=== PATIENT | male | born 1945 | race Caucasian/White ===

== ENCOUNTER 2019-12-10 19:04 | Inpatient (IN) | payer MEDICARE, MEDICAID ==
[2019-12-11 07:44] VITALS: BP 103/62
[2019-12-11] MEDS ORDERED: Magnesium Hydroxide (MOM) 30 mL UDC PO PRN (07:45)
[2019-12-11] MEDS ORDERED: Maalox 30 mL Cup PO PRN (07:45)
[2019-12-11] MEDS ORDERED: Multivitamin Tab PO SCH (09:00)
--- NOTE | 2019-12-11 19:12 | History & Physical ---
ADMIT DATE: 12/11/2019 HISTORY OF PRESENT ILLNESS: The patient is a 74-year-old male with long history of hypertension, mild dementia, constipation, degenerative joint disease, admitted to [facility] for evaluation and treatment. The patient denies chest pain, shortness of breath, nausea, vomiting, fever or chills. PAST MEDICAL HISTORY: Significant for hypertension, degenerative joint disease, constipation and dementia. PAST SURGICAL HISTORY: No recent surgery. ALLERGIES: None. MEDICATIONS: Follow admission reconciliation. SOCIAL HISTORY: Chronic smoker. No alcohol or drug. FAMILY HISTORY: Noncontributory. REVIEW OF SYSTEMS: RENAL SYSTEM: No history of chronic renal disorder. CARDIOVASCULAR SYSTEM: He has history of hypertension. ENDOCRINE SYSTEM: No diabetes or thyroid problem. GASTROINTESTINAL SYSTEM: No upper or lower gastrointestinal bleed. NEUROLOGICAL SYSTEM: Seizure disorder. SKELETOMUSCULAR SYSTEM: No muscular dystrophy. HEMATOLOGICAL SYSTEM: No bleeding tendencies. RESPIRATORY SYSTEM: No asthma. GENITOURINARY: No dysuria or hematuria. PHYSICAL EXAMINATION: GENERAL: He is awake, alert, mildly confused. VITAL SIGNS: Temperature 97.1, heart rate 72, blood pressure 100/59. HEENT: Normocephalic. Pupils are equal to light and accommodation. Sclerae clear. NECK: Supple. Negative for lymphadenopathy, JVD or bruit. CHEST: Entry of air bilaterally normal. No rhonchi or wheezing. HEART: S1, S2 normal. No gallop rhythm. ABDOMEN: Soft, bowel sounds positive. EXTREMITIES: No edema. SKIN: Intact. NEUROLOGIC: He is awake, alert, mildly confused. No focal motor or sensory deficit. Cranial neve #1: The patient is able to smell different odor. Cranial #2: The patient is able to read printed page. Cranial nerve #3: The patient is able to move eyeball upward and outward. Cranial nerve #4: The patient is able to move eyeball inward and downward. Cranial nerve #5: The patient able to clench teeth, has normal sensation to forehead. Cranial nerve #6: The patient is able to move eyeball lateral on both sides. Cranial nerve #7: The patient is able to move eyebrow upwards on both sides. Cranial nerve #8: The patient is able to hear finger rubs on both sides. Cranial nerve #9: The patient has a normal gag reflex. Cranial nerve #10: The patient is able to move soft palate upward on each side. Cranial nerve #11: The patient able to shrink shoulder on both sides. Cranial nerve #12: The patient able to stick tongue straight. Motor and sensory system: His gait is normal. Romberg reflex is normal. Muscle tone is normal. Deep tendon reflex is normal. Plantar reflex is normal. [id number] is normal. Dqpz-yn-[id number] is normal. Sensory is normal. ASSESSMENT: 1. Hypertension. 2. Chronic obstructive pulmonary disease. 3. Degenerative joint disease. 4. Psychosis. PLAN: The patient in the hospital under Dr. Cooper's service. Medical problem during hospitalization is psychosis. Medical problems addressed at discharge for patient's cessation of smoking. The patient is medically stable for activity. Thank you, Dr. Cooper, for asking me to see your patient. The patient will follow up with primary care physician upon discharge. The patient is a full code. JOB# [id number]
--- NOTE | 2019-12-12 00:26 | Psychiatric Evaluation ---
DATE OF SERVICE: 12/11/2019 PSYCHIATRIC INITIAL EVALUATION MENTAL STATUS EXAM AGE: 74. SEX: Male. PHYSICIAN: Dr. Cooper. CHIEF COMPLAINT: Agitation and paranoia. HISTORY OF PRESENT ILLNESS: The patient is a 74-year-old male with long history of schizophrenia. The patient has been increasingly paranoid and has been also actively responding to stimuli. He has been talking to himself. He also needed lots of redirections and staff has not been able to do so and because of their inability to handle patient's condition, patient was transferred to [facility]. ____ [facility] [place]. He still has episodes of irritability and anger. The patient also has been suspicious and paranoid and at times actively talking to himself and actively hallucinating. The patient also needed lots of redirections. PAST PSYCHIATRIC HISTORY: The patient has history of schizophrenia and he has been monitored in [facility] closely for his paranoia. PAST MEDICAL HISTORY: The patient has hypertension and type 2 diabetes mellitus as well as chronic obstructive pulmonary disease. The patient also has anemia that is unspecified and also history of heart failure as well as polyarthritis and Parkinson's disease. SOCIAL HISTORY: The patient lives in [facility]. No known alcohol or drug abuse. ALLERGIES: No known allergies. MENTAL STATUS EXAMINATION: The patient appears his stated age. Unkempt. Anxious. Thought processes are circumstantial with flight of ideas. The patient is actively hallucinating and talking to himself and not able to answer questions coherently and gets agitated with my questions. The patient denies auditory or visual hallucinations, but actively responding. The patient denies suicide or homicide. The patient is alert and oriented to time, place, person, and situation. I am unable to assess his memory at this time because of his agitation. Poor insight and poor judgment. ASSESSMENT: PRIMARY DIAGNOSIS: Schizophrenic disorder, unspecified. MEDICAL DIAGNOSES: 1. Anemia. 2. Kidney disease, unspecified. 3. Type 2 diabetes mellitus. 4. Umbilical hernia. TREATMENT PLAN: We will monitor behavior and condition closely. Also, we will start individual as well as milieu psychotherapy. Also, we will monitor his behavior and work on behavioral modification. ESTIMATED LENGTH OF STAY: 5-7 days. PATIENT'S STRENGTHS AND WEAKNESSES: The patient's strength is not clear at this time. WEAKNESSES: Psychosis. AFTER DISCHARGE PLAN: The patient will return to [facility] with plans to continue to follow him up there. JOB# [id number]
[2019-12-12] MEDS: Multivitamin w/ Minerals Tab PO SCH (08:57)
[2019-12-12] MEDS: Lactulose 10 Gm/15 mL 30mL UDC PO SCH ×2 (08:59→17:15)
[2019-12-12] MEDS ORDERED: Non-Formulary Item 1 EA (Valbenazine Tosylate [Ingrezza] 40 MG) PO SCH (09:00)
--- NOTE | 2019-12-12 12:08 | Progress Notes ---
DATE: 12/12/2019 SUBJECTIVE: Chart was reviewed and the patient interviewed. Also discussed the patient's condition with the staff and reviewed records and labs. The patient is still anxious and is still having episodes of irritability and agitation. The patient also still has mood swings and still seems to be adjusting. Otherwise, the patient is compliant with taking his medications and no side effects of Risperdal The patient's gait is steady. Vital signs are stable. New labs are available for review. TREATMENT PLAN: Continue Risperdal on a dose 1.5 mg every day and continue adjusting the dose. Also continue to work on behavioral modification and followup. ESTIMATED LENGTH OF STAY: 3-5 days. REASON FOR CONTINUED HOSPITAL STAY: The patient is still agitated and needs close monitoring and work on adjusting medications and behavioral modification. JOB# [id number]
--- NOTE | 2019-12-12 15:07 | Internal Medicine Prog Note ---
Internal Medicine Subjective - Subjective Service Date: 12/12/19 Patient seen and examined:: with staff (HE FEELS WELL) Patient is:: awake, verbal, ambulating, talking, confused Per staff patient has:: no adverse event, eating well, confused Internal Medicine Objective - Physical Exam Vitals and I&O: Vital Signs Temp 97.5 F 12/12/19 14:00 Pulse 110 12/12/19 14:00 Resp 18 12/12/19 14:00 BP 106/76 12/12/19 14:00 Pulse Ox 98 12/12/19 14:00 Intake & Output 12/11/19 12/12/19 12/12/19 18:59 06:59 18:59 Intake Total 240 Balance 240 Weight (lbs) 81.647 kg Intake: Oral 240 Other: # Voids 2 # Bowel Movements 0 Stool Characteristics Soft Soft Soft Brown Brown Brown Weight Source Patient stated Active Medications: Current Medications Acetaminophen (Tylenol) 650 mg PO Q4H PRN PRN Reason: Pain (Mild 1-3) Stop: 02/09/20 07:44 Al Hydrox/Mg Hydrox/Simethicone (Maalox) 30 ml PO Q4HR PRN PRN Reason: GI DISTRESS Stop: 02/09/20 07:44 Carvedilol (Coreg) 3.125 mg PO BID [facility] Stop: 02/10/20 08:59 Last Admin: 12/12/19 08:57 Dose: 3.125 mg Docusate Sodium (Colace) 250 mg PO BID [facility] Stop: 02/10/20 08:59 Last Admin: 12/12/19 08:57 Dose: 250 mg Lactulose (Cephulac) 30 gm PO BID [facility] Stop: 02/10/20 08:59 Last Admin: 12/12/19 08:59 Dose: 30 gm Lorazepam (Ativan) 0.5 mg PO Q4HR PRN; Protocol PRN Reason: Anxiety Stop: 01/10/20 07:44 Losartan Potassium (Cozaar) 25 mg PO DAILY [facility] Stop: 02/10/20 08:59 Last Admin: 12/12/19 08:58 Dose: 25 mg Magnesium Hydroxide (Milk Of Magnesia) 30 ml PO HS PRN PRN Reason: Constipation Miscellaneous (Valbenazine Tosylate [Ingrezza]) 40 mg PO DAILY [facility] Stop: 02/10/20 08:59 Risperidone (Risperdal) 1.5 mg PO HS PERLA; Protocol Stop: 02/09/20 20:59 Trazodone HCl (Desyrel) 25 mg PO HS PERLA; Protocol Stop: 02/09/20 20:59 Zolpidem Tartrate (Ambien) 5 mg PO HS PRN PRN Reason: Insomnia Stop: 02/09/20 07:44 General: demented HEENT: NC/AT, PERRLA, EOMI, anicteric sclerae, throat clear Neck: Supple, No JVD, No thyromegaly, +2 carotid pulse wo bruit, No LAD Lungs: CTAB Cardiovascular: RRR, Normal S1, Normal S2, without murmur Abdomen: soft, non-tender, non-distended Extremities: clear Neurological: no change, gait stable Internal Medicine Assmt/Plan - Assessment Assessment: 1.HTN. 2.COPD. 3,DJD. 4.PSYCHOSIS - Plan Plan: CONTIINUE ON CURRENT MEDICATION AND DIET
--- NOTE | 2019-12-13 07:12 | Progress Notes ---
DATE: 12/13/2019 SUBJECTIVE: A 74-year-old male with history of schizophrenia, paranoid. Does not know why he is here, just stating, "the ambulance brought me", but apparently he was paranoid, angry, and irritable. The patient mostly withdrawn, keeps to self, seems to be somewhat paranoid of those around him. Time was spent speaking with the patient, review of the medical records. Vitals were reviewed and recent labs were reviewed. Medications were reviewed. Ongoing symptoms, psychotic symptoms. I will continue to monitor closely. The patient remains unstable, ongoing paranoia. JOB# [id number]
[2019-12-13] MEDS: Lactulose 10 Gm/15 mL 30mL UDC PO SCH ×2 (08:27→16:28)
[2019-12-13] MEDS: Multivitamin w/ Minerals Tab PO SCH (08:30)
--- NOTE | 2019-12-13 20:17 | General Progress Note ---
Subjective - Review of Systems Service Date: 12/13/19 Subjective: resting comfortably no distress Objective - Results Recent Labs: Laboratory Last Values POC Glucose 115 MG/DL (70 - 105) H 12/12/19 15:56 - Physical Exam Vitals and I&O: Vital Signs Temp 97.4 F 12/13/19 20:10 Pulse 83 12/13/19 20:10 Resp 18 12/13/19 20:10 BP 131/71 12/13/19 20:10 Pulse Ox 96 12/13/19 20:10 Intake & Output 12/13/19 12/13/19 12/14/19 06:59 18:59 06:59 Intake Total 400 1200 120 Balance 400 1200 120 Intake: Oral 400 1200 120 Other: # Voids 2 2 # Bowel Movements 0 1 0 Stool Characteristics Soft Brown Active Medications: Current Medications Acetaminophen (Tylenol) 650 mg PO Q4H PRN PRN Reason: Pain (Mild 1-3) Stop: 02/09/20 07:44 Last Admin: 12/12/19 23:41 Dose: 650 mg Al Hydrox/Mg Hydrox/Simethicone (Maalox) 30 ml PO Q4HR PRN PRN Reason: GI DISTRESS Stop: 02/09/20 07:44 Carvedilol (Coreg) 3.125 mg PO BID [facility] Stop: 02/10/20 08:59 Last Admin: 12/13/19 16:27 Dose: Not Given Docusate Sodium (Colace) 250 mg PO BID [facility] Stop: 02/10/20 08:59 Last Admin: 12/13/19 16:29 Dose: 250 mg Lactulose (Cephulac) 30 gm PO BID [facility] Stop: 02/10/20 08:59 Last Admin: 12/13/19 16:28 Dose: Not Given Lorazepam (Ativan) 0.5 mg PO Q4HR PRN; Protocol PRN Reason: Anxiety Stop: 01/10/20 07:44 Losartan Potassium (Cozaar) 25 mg PO DAILY [facility] Stop: 02/10/20 08:59 Last Admin: 12/13/19 08:31 Dose: Not Given Magnesium Hydroxide (Milk Of Magnesia) 30 ml PO HS PRN PRN Reason: Constipation Miscellaneous (Valbenazine Tosylate [Ingrezza]) 40 mg PO DAILY [facility] Stop: 02/10/20 08:59 Risperidone (Risperdal) 1.5 mg PO HS PERLA; Protocol Stop: 02/09/20 20:59 Last Admin: 12/12/19 21:16 Dose: 1.5 mg Trazodone HCl (Desyrel) 25 mg PO HS PERLA; Protocol Stop: 02/09/20 20:59 Last Admin: 12/12/19 21:10 Dose: 25 mg Zolpidem Tartrate (Ambien) 5 mg PO HS PRN PRN Reason: Insomnia Stop: 02/09/20 07:44 Last Admin: 12/12/19 23:41 Dose: 5 mg General: No acute distress HEENT: Atraumatic, PERRLA Neck: Supple, JVD, Thyromegaly Cardiovascular: Regular rate, Normal S1, Normal S2 Lungs: Clear to auscultation Abdomen: Bowel sounds, Soft Assessment/Plan - Assessment Assessment: 1.HTN. 2.COPD. 3,DJD. 4.PSYCHOSIS - Plan Plan: continue current treatment Nutritional Asmnt/Malnutr-PDOC - Dietary Evaluation Malnutrition Findings (Please click <Entered> for more info): Nutritional Asmnt/Malnutrition Start: 12/13/19 10: 32 Text: Status: Complete Freq: Protocol: Document 12/13/19 10:32 ZOEY (Rec: 12/13/19 10:41 [facility]- [email or web address]) Nutritional Asmnt/Malnutrition Patient General Information Nutritional Screening Moderate Risk Diagnosis Psychosis Pertinent Medical Hx/Surgical Hx Hypertension, degenerative joint disease, constipation, dementia Subjective Information Patient was admitted from [facility]. Per nursing notes, patient with poor dentition and no dentures brought in. He is tolerating current diet with adequate intake. Current Diet Order/ Nutrition Support Pureed, Cardiac, 60gm CCHO, NCS Patient / S.O Not Indicated Pertinent Medications maalox, colace, lactulose, cozaar, MOM Pertinent Labs Glucose 115 Nutritional Hx/Data Height 1.83 m Height (Calculated Centimeters) 182.9 Current Weight (lbs) 81.647 kg Weight (Calculated Kilograms) 81.6 Weight (Calculated Grams) 79722.6 [place] Body Weight 178 % [place] Body Weight 101 Body Mass Index (BMI) 24.4 Recent Weight Change No Weight Status Approriate GI Symptoms GI Symptoms None Last BM 12/11 x 1 Difficult in: None Food Allergies No Cultural/Ethnic/Baptist Belief none indicated Usual diet at home unknown Skin Integrity/Comment: Matthew 18, Intact Current %PO Good (75-100%) Estimated Nutritional Goals BEE in Kcals: Using Current wt Calories/Kcals/Kg 81.8kg 25-30 kcal/kg Kcals Calculated ~5477-9988 kcal/day Protein: Using Current wt Protein g/k.8-1gm/kg Protein Calculated ~65-80 gm/day Fluid: ml ~8769-1869 ml/day (1 ml/kcal) Nutritional Problem No current Nutrition Prob Problem No nutrition diagnosis at this time Intervention/Recommendation Comments 1. Continue pureed, Cardiac, 60gm CCHO diet as tolerated by patient. Expected Outcomes/Goals Expected Outcomes/Goals Adequate nutrition to meet >75 % estimated needs, improved labs, improved GI function, TF tolerance, advancement to oral diet, skin remains intact , weight maintenance or trend toward ideal body weight. F/U LR 12/19-
[2019-12-14] MEDS: Lactulose 10 Gm/15 mL 30mL UDC PO SCH ×2 (08:29→17:59)
[2019-12-14] MEDS: Multivitamin w/ Minerals Tab PO SCH (08:32)
--- NOTE | 2019-12-14 14:51 | General Progress Note ---
Subjective - Review of Systems Service Date: 12/14/19 Subjective: resting comfortably no distress Objective - Results Recent Labs: Laboratory Last Values POC Glucose 115 MG/DL (70 - 105) H 12/12/19 15:56 - Physical Exam Vitals and I&O: Vital Signs Temp 98.8 F 12/14/19 06:08 Pulse 71 12/14/19 08:30 Resp 19 12/14/19 07:43 BP 106/53 12/14/19 08:30 Pulse Ox 93 12/14/19 06:08 Intake & Output 12/13/19 12/14/19 12/14/19 18:59 06:59 18:59 Intake Total 1200 240 Balance 1200 240 Intake: Oral 1200 240 Other: # Voids 1 # Bowel Movements 1 0 Stool Characteristics Soft Brown Active Medications: Current Medications Acetaminophen (Tylenol) 650 mg PO Q4H PRN PRN Reason: Pain (Mild 1-3) Stop: 02/09/20 07:44 Last Admin: 12/12/19 23:41 Dose: 650 mg Al Hydrox/Mg Hydrox/Simethicone (Maalox) 30 ml PO Q4HR PRN PRN Reason: GI DISTRESS Stop: 02/09/20 07:44 Carvedilol (Coreg) 3.125 mg PO BID [facility] Stop: 02/10/20 08:59 Last Admin: 12/14/19 08:29 Dose: Not Given Docusate Sodium (Colace) 250 mg PO BID [facility] Stop: 02/10/20 08:59 Last Admin: 12/14/19 08:32 Dose: 250 mg Lactulose (Cephulac) 30 gm PO BID [facility] Stop: 02/10/20 08:59 Last Admin: 12/14/19 08:29 Dose: Not Given Lorazepam (Ativan) 0.5 mg PO Q4HR PRN; Protocol PRN Reason: Anxiety Stop: 01/10/20 07:44 Losartan Potassium (Cozaar) 25 mg PO DAILY [facility] Stop: 02/10/20 08:59 Last Admin: 12/14/19 08:30 Dose: Not Given Magnesium Hydroxide (Milk Of Magnesia) 30 ml PO HS PRN PRN Reason: Constipation Miscellaneous (Valbenazine Tosylate [Ingrezza]) 40 mg PO DAILY [facility] Stop: 02/10/20 08:59 Risperidone (Risperdal) 1.5 mg PO HS PERLA; Protocol Stop: 02/09/20 20:59 Last Admin: 12/13/19 21:26 Dose: 1.5 mg Trazodone HCl (Desyrel) 25 mg PO HS PERLA; Protocol Stop: 02/09/20 20:59 Last Admin: 12/13/19 21:25 Dose: 25 mg Zolpidem Tartrate (Ambien) 5 mg PO HS PRN PRN Reason: Insomnia Stop: 02/09/20 07:44 Last Admin: 12/13/19 21:26 Dose: 5 mg General: No acute distress HEENT: Atraumatic, PERRLA Neck: Supple, JVD, Thyromegaly Cardiovascular: Regular rate, Normal S1, Normal S2 Lungs: Clear to auscultation Abdomen: Bowel sounds, Soft Assessment/Plan - Assessment Assessment: 1.HTN. 2.COPD. 3,DJD. 4.PSYCHOSIS - Plan Plan: continue current treatment Nutritional Asmnt/Malnutr-PDOC - Dietary Evaluation Malnutrition Findings (Please click <Entered> for more info): Nutritional Asmnt/Malnutrition Start: 12/13/19 10: 32 Text: Status: Complete Freq: Protocol: Document 12/13/19 10:32 ZOEY (Rec: 12/13/19 10:41 [facility]- [email or web address]) Nutritional Asmnt/Malnutrition Patient General Information Nutritional Screening Moderate Risk Diagnosis Psychosis Pertinent Medical Hx/Surgical Hx Hypertension, degenerative joint disease, constipation, dementia Subjective Information Patient was admitted from [facility]. Per nursing notes, patient with poor dentition and no dentures brought in. He is tolerating current diet with adequate intake. Current Diet Order/ Nutrition Support Pureed, Cardiac, 60gm CCHO, NCS Patient / S.O Not Indicated Pertinent Medications maalox, colace, lactulose, cozaar, MOM Pertinent Labs Glucose 115 Nutritional Hx/Data Height 1.83 m Height (Calculated Centimeters) 182.9 Current Weight (lbs) 81.647 kg Weight (Calculated Kilograms) 81.6 Weight (Calculated Grams) 49887.6 [place] Body Weight 178 % [place] Body Weight 101 Body Mass Index (BMI) 24.4 Recent Weight Change No Weight Status Approriate GI Symptoms GI Symptoms None Last BM 12/11 x 1 Difficult in: None Food Allergies No Cultural/Ethnic/Jainism Belief none indicated Usual diet at home unknown Skin Integrity/Comment: Matthew 18, Intact Current %PO Good (75-100%) Estimated Nutritional Goals BEE in Kcals: Using Current wt Calories/Kcals/Kg 81.8kg 25-30 kcal/kg Kcals Calculated ~9518-1246 kcal/day Protein: Using Current wt Protein g/k.8-1gm/kg Protein Calculated ~65-80 gm/day Fluid: ml ~8613-7477 ml/day (1 ml/kcal) Nutritional Problem No current Nutrition Prob Problem No nutrition diagnosis at this time Intervention/Recommendation Comments 1. Continue pureed, Cardiac, 60gm CCHO diet as tolerated by patient. Expected Outcomes/Goals Expected Outcomes/Goals Adequate nutrition to meet >75 % estimated needs, improved labs, improved GI function, TF tolerance, advancement to oral diet, skin remains intact , weight maintenance or trend toward ideal body weight. F/U LR 12/19-
--- NOTE | 2019-12-14 22:54 | Progress Notes ---
DATE: 12/14/2019 PHYSICIAN: Ponce Trinh DO COVERING FOR: Dr. Monica Cooper SUBJECTIVE: The patient was interviewed. Case was discussed with staff. Chart and records were reviewed. Per the staff, the patient has been isolated, withdrawn, depressed. The patient was interviewed this morning at bedside. The patient reports "they just brought me here." The patient appears withdrawn and isolating himself to his room. He appears to be paranoid of his environment. He has poor insight into his condition. He reports no side effects to his medication. He otherwise is poorly cooperative with the interview. MENTAL STATUS EXAMINATION: The patient is an elderly male lying in his hospital bed. He is calm, but guarded. Speech is soft. Mood and affect appear to be irritable and constricted. Thought process appears to be somewhat concrete and loose at times and unable to assess for suicidal or homicidal thoughts, but the patient does appear to be somewhat internally preoccupied and paranoid of his environment. He is alert and oriented to person. His insight, judgment and impulse control appear to be poor at this time. ASSESSMENT AND PLAN: We will continue the patient's acute hospitalization. We will continue medications as prescribed. We will encourage the patient to verbalize his needs and participate in group and milieu therapy. [facility]# [id number]
--- NOTE | 2019-12-15 07:39 | Progress Notes ---
DATE: 12/15/2019 SUBJECTIVE: Chart was reviewed and the patient interviewed. Also discussed the patient's condition with the staff and reviewed records and labs. The patient is still in irritable mood and still having severe mood swings. The patient also is still easily agitated. The patient also still needs lots of redirections because of his irritability and anger. The patient also gets angry quickly. Otherwise, the patient is compliant with taking medications with no side effects of medications. MENTAL STATUS EXAM: Unkempt. Angry. Irritable mood. Thought process is circumstantial, but no flight of ideas. ASSESSMENT: The patient is still agitated and still needs close monitoring. TREATMENT PLAN: We will continue monitoring his behavior and condition closely. Also, we will increase Risperdal to 1 mg in the morning and 1.5 mg at bedtime and continue to work on behavioral modification. JOB# [id number]
[2019-12-15] MEDS: Multivitamin w/ Minerals Tab PO SCH (08:26)
[2019-12-15] MEDS: Lactulose 10 Gm/15 mL 30mL UDC PO SCH ×2 (08:27→16:08)
[2019-12-15] MEDS: risperiDONE 1 mg/mL 30 mL Bottle PO SCH (13:24)
--- NOTE | 2019-12-15 16:54 | Internal Medicine Prog Note ---
Internal Medicine Subjective - Subjective Service Date: 12/15/19 Patient seen and examined:: without staff (HE FEELS BETTER) Patient is:: awake, verbal, ambulating, talking, confused Per staff patient has:: no adverse event, eating well, confused Internal Medicine Objective - Results Recent Labs: Laboratory Last Values POC Glucose 115 MG/DL (70 - 105) H 12/12/19 15:56 - Physical Exam Vitals and I&O: Vital Signs Temp 96.9 F 12/15/19 15:02 Pulse 86 12/15/19 16:08 Resp 20 12/15/19 15:02 BP 130/76 12/15/19 16:08 Pulse Ox 94 12/15/19 15:02 Intake & Output 12/14/19 12/15/19 12/15/19 18:59 06:59 18:59 Intake Total 500 360 Balance 500 360 Intake: Oral 500 360 Other: # Voids 1 # Bowel Movements 1 0 Active Medications: Current Medications Acetaminophen (Tylenol) 650 mg PO Q4H PRN PRN Reason: Pain (Mild 1-3) Stop: 02/09/20 07:44 Last Admin: 12/12/19 23:41 Dose: 650 mg Al Hydrox/Mg Hydrox/Simethicone (Maalox) 30 ml PO Q4HR PRN PRN Reason: GI DISTRESS Stop: 02/09/20 07:44 Carvedilol (Coreg) 3.125 mg PO BID [facility] Stop: 02/10/20 08:59 Last Admin: 12/15/19 16:08 Dose: 3.125 mg Docusate Sodium (Colace) 250 mg PO BID [facility] Stop: 02/10/20 08:59 Last Admin: 12/15/19 16:08 Dose: 250 mg Lactulose (Cephulac) 30 gm PO BID [facility] Stop: 02/10/20 08:59 Last Admin: 12/15/19 16:08 Dose: Not Given Lorazepam (Ativan) 0.5 mg PO Q4HR PRN; Protocol PRN Reason: Anxiety Stop: 01/10/20 07:44 Losartan Potassium (Cozaar) 25 mg PO DAILY [facility] Stop: 02/10/20 08:59 Last Admin: 12/15/19 08:27 Dose: Not Given Magnesium Hydroxide (Milk Of Magnesia) 30 ml PO HS PRN PRN Reason: Constipation Miscellaneous (Valbenazine Tosylate [Ingrezza]) 40 mg PO DAILY [facility] Stop: 02/10/20 08:59 Risperidone (Risperdal) 1.5 mg PO HS [facility]; Protocol Stop: 02/09/20 20:59 Last Admin: 12/14/19 21:44 Dose: 1.5 mg Risperidone (Risperdal) 1 mg PO DAILY [facility]; Protocol Stop: 02/13/20 08:59 Last Admin: 12/15/19 13:24 Dose: Not Given Trazodone HCl (Desyrel) 25 mg PO HS [facility]; Protocol Stop: 02/09/20 20:59 Last Admin: 12/14/19 21:44 Dose: 25 mg Zolpidem Tartrate (Ambien) 5 mg PO HS PRN PRN Reason: Insomnia Stop: 02/09/20 07:44 Last Admin: 12/13/19 21:26 Dose: 5 mg General: demented HEENT: NC/AT, PERRLA, EOMI, anicteric sclerae, throat clear Neck: Supple, No JVD, No thyromegaly, +2 carotid pulse wo bruit, No LAD Lungs: CTAB Cardiovascular: RRR, Normal S1, Normal S2, without murmur Abdomen: soft, non-tender, non-distended Extremities: clear Neurological: no change, gait stable Internal Medicine Assmt/Plan - Assessment Assessment: 1.HTN. 2.COPD. 3,DJD. 4.PSYCHOSIS - Plan Plan: CONTIINUE ON CURRENT MEDICATION AND DIET Nutritional Asmnt/Malnutr-PDOC - Dietary Evaluation Malnutrition Findings (Please click <Entered> for more info): Nutritional Asmnt/Malnutrition Start: 12/13/19 10: 32 Text: Status: Complete Freq: Protocol: Document 12/13/19 10:32 ZOEY (Rec: 12/13/19 10:41 [facility]- [facility]) Nutritional Asmnt/Malnutrition Patient General Information Nutritional Screening Moderate Risk Diagnosis Psychosis Pertinent Medical Hx/Surgical Hx Hypertension, degenerative joint disease, constipation, dementia Subjective Information Patient was admitted from [facility]. Per nursing notes, patient with poor dentition and no dentures brought in. He is tolerating current diet with adequate intake. Current Diet Order/ Nutrition Support Pureed, Cardiac, 60gm CCHO, NCS Patient / S.O Not Indicated Pertinent Medications maalox, colace, lactulose, cozaar, MOM Pertinent Labs Glucose 115 Nutritional Hx/Data Height 1.83 m Height (Calculated Centimeters) 182.9 Current Weight (lbs) 81.647 kg Weight (Calculated Kilograms) 81.6 Weight (Calculated Grams) 86058.6 [place] Body Weight 178 % [place] Body Weight 101 Body Mass Index (BMI) 24.4 Recent Weight Change No Weight Status Approriate GI Symptoms GI Symptoms None Last BM 12/11 x 1 Difficult in: None Food Allergies No Cultural/Ethnic/Tenriism Belief none indicated Usual diet at home unknown Skin Integrity/Comment: Matthew 18, Intact Current %PO Good (75-100%) Estimated Nutritional Goals BEE in Kcals: Using Current wt Calories/Kcals/Kg 81.8kg 25-30 kcal/kg Kcals Calculated ~7478-2814 kcal/day Protein: Using Current wt Protein g/k.8-1gm/kg Protein Calculated ~65-80 gm/day Fluid: ml ~7786-6144 ml/day (1 ml/kcal) Nutritional Problem No current Nutrition Prob Problem No nutrition diagnosis at this time Intervention/Recommendation Comments 1. Continue pureed, Cardiac, 60gm CCHO diet as tolerated by patient. Expected Outcomes/Goals Expected Outcomes/Goals Adequate nutrition to meet >75 % estimated needs, improved labs, improved GI function, TF tolerance, advancement to oral diet, skin remains intact , weight maintenance or trend toward ideal body weight. F/U LR 12/19-
[2019-12-16] MEDS: Lactulose 10 Gm/15 mL 30mL UDC PO SCH ×2 (08:17→16:39)
[2019-12-16] MEDS: Multivitamin w/ Minerals Tab PO SCH (08:19)
[2019-12-16] MEDS: risperiDONE 1 mg/mL 30 mL Bottle PO SCH (08:20)
--- NOTE | 2019-12-16 18:47 | Progress Notes ---
DATE: 12/16/2019 SUBJECTIVE: Chart was reviewed and the patient interviewed. Also discussed the patient's condition with the staff and reviewed records and labs. The patient is still easily agitated and still has severe mood swings. The patient also is still in angry mood, although seems to be slightly better since increased the Risperdal yesterday. The patient also still needs redirections. Otherwise, the patient is compliant with taking his medications. The patient also is sleeping better with the trazodone. During interview, the patient is unkempt and is agitated. Also, is in angry and irritable mood and seems to be preoccupied. ASSESSMENT: The patient is still psychotic and needs close monitoring. TREATMENT PLAN: Continue to monitor behavior and condition closely. Also, continue Risperdal and trazodone same dose and continue to follow up. JOB# [id number]
--- NOTE | 2019-12-16 20:37 | Internal Medicine Prog Note ---
Internal Medicine Subjective - Subjective Service Date: 12/16/19 Patient seen and examined:: without staff (HE FEELS WELL) Patient is:: awake, verbal, ambulating, talking, confused Per staff patient has:: no adverse event, eating well, confused Internal Medicine Objective - Results Recent Labs: Laboratory Last Values POC Glucose 115 MG/DL (70 - 105) H 12/12/19 15:56 - Physical Exam Vitals and I&O: Vital Signs Temp 97.6 F 12/16/19 14:00 Pulse 80 12/16/19 17:38 Resp 18 12/16/19 19:52 BP 109/74 12/16/19 17:38 Pulse Ox 95 12/16/19 14:00 Intake & Output 12/16/19 12/16/19 12/17/19 06:59 18:59 06:59 Intake Total 120 750 Balance 120 750 Intake: Oral 120 750 Other: # Voids 3 # Bowel Movements 0 3 Active Medications: Current Medications Acetaminophen (Tylenol) 650 mg PO Q4H PRN PRN Reason: Pain (Mild 1-3) Stop: 02/09/20 07:44 Last Admin: 12/12/19 23:41 Dose: 650 mg Al Hydrox/Mg Hydrox/Simethicone (Maalox) 30 ml PO Q4HR PRN PRN Reason: GI DISTRESS Stop: 02/09/20 07:44 Carvedilol (Coreg) 3.125 mg PO BID [facility] Stop: 02/10/20 08:59 Last Admin: 12/16/19 17:38 Dose: 3.125 mg Docusate Sodium (Colace) 250 mg PO BID [facility] Stop: 02/10/20 08:59 Last Admin: 12/16/19 16:38 Dose: Not Given Lactulose (Cephulac) 30 gm PO BID [facility] Stop: 02/10/20 08:59 Last Admin: 12/16/19 16:39 Dose: Not Given Lorazepam (Ativan) 0.5 mg PO Q4HR PRN; Protocol PRN Reason: Anxiety Stop: 01/10/20 07:44 Losartan Potassium (Cozaar) 25 mg PO DAILY [facility] Stop: 02/10/20 08:59 Last Admin: 12/16/19 08:19 Dose: Not Given Magnesium Hydroxide (Milk Of Magnesia) 30 ml PO HS PRN PRN Reason: Constipation Miscellaneous (Valbenazine Tosylate [Ingrezza]) 40 mg PO DAILY [facility] Stop: 02/10/20 08:59 Risperidone (Risperdal) 1 mg PO DAILY [facility] Stop: 02/15/20 08:59 Risperidone 1 mg/ Risperidone (0.5 mg) 1.5 mg PO HS [facility] Stop: 02/14/20 20:59 Trazodone HCl (Desyrel) 25 mg PO HS [facility]; Protocol Stop: 02/09/20 20:59 Last Admin: 12/15/19 21:01 Dose: 25 mg Zolpidem Tartrate (Ambien) 5 mg PO HS PRN PRN Reason: Insomnia Stop: 02/09/20 07:44 Last Admin: 12/13/19 21:26 Dose: 5 mg General: demented HEENT: NC/AT, PERRLA, EOMI, anicteric sclerae, throat clear Neck: Supple, No JVD, No thyromegaly, +2 carotid pulse wo bruit, No LAD Lungs: CTAB Cardiovascular: RRR, Normal S1, Normal S2, without murmur Abdomen: soft, non-tender, non-distended Extremities: clear Neurological: no change, gait stable Internal Medicine Assmt/Plan - Assessment Assessment: 1.HTN. 2.COPD. 3,DJD. 4.PSYCHOSIS - Plan Plan: CONTIINUE ON CURRENT MEDICATION AND DIET Nutritional Asmnt/Malnutr-PDOC - Dietary Evaluation Malnutrition Findings (Please click <Entered> for more info): Nutritional Asmnt/Malnutrition Start: 12/13/19 10: 32 Text: Status: Complete Freq: Protocol: Document 12/13/19 10:32 [facility] (Rec: 12/13/19 10:41 [facility] Nutritional Asmnt/Malnutrition Patient General Information Nutritional Screening Moderate Risk Diagnosis Psychosis Pertinent Medical Hx/Surgical Hx Hypertension, degenerative joint disease, constipation, dementia Subjective Information Patient was admitted from [facility]. Per nursing notes, patient with poor dentition and no dentures brought in. He is tolerating current diet with adequate intake. Current Diet Order/ Nutrition Support Pureed, Cardiac, 60gm CCHO, NCS Patient / S.O Not Indicated Pertinent Medications maalox, colace, lactulose, cozaar, MOM Pertinent Labs Glucose 115 Nutritional Hx/Data Height 1.83 m Height (Calculated Centimeters) 182.9 Current Weight (lbs) 81.647 kg Weight (Calculated Kilograms) 81.6 Weight (Calculated Grams) 70985.6 [place] Body Weight 178 % [place] Body Weight 101 Body Mass Index (BMI) 24.4 Recent Weight Change No Weight Status Approriate GI Symptoms GI Symptoms None Last BM 12/11 x 1 Difficult in: None Food Allergies No Cultural/Ethnic/Anglican Belief none indicated Usual diet at home unknown Skin Integrity/Comment: Matthew 18, Intact Current %PO Good (75-100%) Estimated Nutritional Goals BEE in Kcals: Using Current wt Calories/Kcals/Kg 81.8kg 25-30 kcal/kg Kcals Calculated ~3507-1458 kcal/day Protein: Using Current wt Protein g/k.8-1gm/kg Protein Calculated ~65-80 gm/day Fluid: ml ~3113-1711 ml/day (1 ml/kcal) Nutritional Problem No current Nutrition Prob Problem No nutrition diagnosis at this time Intervention/Recommendation Comments 1. Continue pureed, Cardiac, 60gm CCHO diet as tolerated by patient. Expected Outcomes/Goals Expected Outcomes/Goals Adequate nutrition to meet >75 % estimated needs, improved labs, improved GI function, TF tolerance, advancement to oral diet, skin remains intact , weight maintenance or trend toward ideal body weight. F/U LR 12/19-
--- NOTE | 2019-12-17 07:28 | Progress Notes ---
DATE: SUBJECTIVE: Chart reviewed and the patient interviewed. Also discussed the patient's condition with the staff and reviewed records and labs. The patient is still anxious and is still guarded and withdrawn. The patient also still seems to be depressed and wants to be left alone. He is interacting minimally with others. Also, during interview, the patient is withdrawn, but calm and cooperative and in depressed mood. ASSESSMENT: The patient is currently still depressed, but not suicidal or homicidal. TREATMENT PLAN: We will continue to monitor his behavior and his condition closely. Also, continue adjusting his medications. ESTIMATED LENGTH OF STAY: 1-3 days. JOB# [id number]
[2019-12-17] MEDS: Multivitamin w/ Minerals Tab PO SCH (08:07)
[2019-12-17] MEDS: Lactulose 10 Gm/15 mL 30mL UDC PO SCH ×2 (09:13→17:06)
--- NOTE | 2019-12-17 22:17 | Internal Medicine Prog Note ---
Internal Medicine Subjective - Subjective Service Date: 12/17/19 Patient seen and examined:: without staff (HE IS DOING WELL) Patient is:: awake, verbal, ambulating, talking, confused Per staff patient has:: no adverse event, eating well, confused Internal Medicine Objective - Results Recent Labs: Laboratory Last Values POC Glucose 115 MG/DL (70 - 105) H 12/12/19 15:56 - Physical Exam Vitals and I&O: Vital Signs Temp 98.2 F 12/17/19 20:09 Pulse 82 12/17/19 20:09 Resp 20 12/17/19 20:09 BP 120/78 12/17/19 20:09 Pulse Ox 94 12/17/19 20:09 Intake & Output 12/17/19 12/17/19 12/18/19 06:59 18:59 06:59 Intake Total 900 120 Balance 900 120 Intake: Oral 900 120 Other: # Voids 3 3 2 # Bowel Movements 0 1 0 Active Medications: Current Medications Acetaminophen (Tylenol) 650 mg PO Q4H PRN PRN Reason: Pain (Mild 1-3) Stop: 02/09/20 07:44 Last Admin: 12/12/19 23:41 Dose: 650 mg Al Hydrox/Mg Hydrox/Simethicone (Maalox) 30 ml PO Q4HR PRN PRN Reason: GI DISTRESS Stop: 02/09/20 07:44 Carvedilol (Coreg) 3.125 mg PO BID [facility] Stop: 02/10/20 08:59 Last Admin: 12/17/19 16:14 Dose: Not Given Docusate Sodium (Colace) 250 mg PO BID [facility] Stop: 02/10/20 08:59 Last Admin: 12/17/19 16:12 Dose: 250 mg Lactulose (Cephulac) 30 gm PO BID [facility] Stop: 02/10/20 08:59 Last Admin: 12/17/19 17:06 Dose: Not Given Lorazepam (Ativan) 0.5 mg PO Q4HR PRN; Protocol PRN Reason: Anxiety Stop: 01/10/20 07:44 Losartan Potassium (Cozaar) 25 mg PO DAILY [facility] Stop: 02/10/20 08:59 Last Admin: 12/17/19 08:12 Dose: Not Given Magnesium Hydroxide (Milk Of Magnesia) 30 ml PO HS PRN PRN Reason: Constipation Miscellaneous (Valbenazine Tosylate [Ingrezza]) 40 mg PO DAILY [facility] Stop: 02/10/20 08:59 Risperidone (Risperdal) 1 mg PO DAILY [facility] Stop: 02/15/20 08:59 Last Admin: 12/17/19 08:07 Dose: 1 mg Risperidone 1 mg/ Risperidone (0.5 mg) 1.5 mg PO HS [facility] Stop: 02/14/20 20:59 Last Admin: 12/17/19 20:30 Dose: 1.5 mg Trazodone HCl (Desyrel) 25 mg PO HS [facility]; Protocol Stop: 02/09/20 20:59 Last Admin: 12/17/19 20:29 Dose: 25 mg Zolpidem Tartrate (Ambien) 5 mg PO HS PRN PRN Reason: Insomnia Stop: 02/09/20 07:44 Last Admin: 12/13/19 21:26 Dose: 5 mg General: demented HEENT: NC/AT, PERRLA, EOMI, anicteric sclerae, throat clear Neck: Supple, No JVD, No thyromegaly, +2 carotid pulse wo bruit, No LAD Lungs: CTAB Cardiovascular: RRR, Normal S1, Normal S2, without murmur Abdomen: soft, non-tender, non-distended Extremities: clear Neurological: no change, gait stable Internal Medicine Assmt/Plan - Assessment Assessment: 1.HTN. 2.COPD. 3,DJD. 4.PSYCHOSIS - Plan Plan: CONTIINUE ON CURRENT MEDICATION AND DIET Nutritional Asmnt/Malnutr-PDOC - Dietary Evaluation Malnutrition Findings (Please click <Entered> for more info): Nutritional Asmnt/Malnutrition Start: 12/13/19 10: 32 Text: Status: Complete Freq: Protocol: Document 12/13/19 10:32 ZOEY (Rec: 12/13/19 10:41 [facility]- FNS1) Nutritional Asmnt/Malnutrition Patient General Information Nutritional Screening Moderate Risk Diagnosis Psychosis Pertinent Medical Hx/Surgical Hx Hypertension, degenerative joint disease, constipation, dementia Subjective Information Patient was admitted from [facility]. Per nursing notes, patient with poor dentition and no dentures brought in. He is tolerating current diet with adequate intake. Current Diet Order/ Nutrition Support Pureed, Cardiac, 60gm CCHO, NCS Patient / S.O Not Indicated Pertinent Medications maalox, colace, lactulose, cozaar, MOM Pertinent Labs Glucose 115 Nutritional Hx/Data Height 1.83 m Height (Calculated Centimeters) 182.9 Current Weight (lbs) 81.647 kg Weight (Calculated Kilograms) 81.6 Weight (Calculated Grams) 56362.6 [place] Body Weight 178 % [place] Body Weight 101 Body Mass Index (BMI) 24.4 Recent Weight Change No Weight Status Approriate GI Symptoms GI Symptoms None Last BM 12/11 x 1 Difficult in: None Food Allergies No Cultural/Ethnic/Nondenominational Belief none indicated Usual diet at home unknown Skin Integrity/Comment: Matthew 18, Intact Current %PO Good (75-100%) Estimated Nutritional Goals BEE in Kcals: Using Current wt Calories/Kcals/Kg 81.8kg 25-30 kcal/kg Kcals Calculated ~8394-6736 kcal/day Protein: Using Current wt Protein g/k.8-1gm/kg Protein Calculated ~65-80 gm/day Fluid: ml ~9274-2639 ml/day (1 ml/kcal) Nutritional Problem No current Nutrition Prob Problem No nutrition diagnosis at this time Intervention/Recommendation Comments 1. Continue pureed, Cardiac, 60gm CCHO diet as tolerated by patient. Expected Outcomes/Goals Expected Outcomes/Goals Adequate nutrition to meet >75 % estimated needs, improved labs, improved GI function, TF tolerance, advancement to oral diet, skin remains intact , weight maintenance or trend toward ideal body weight. F/U LR 12/19-
[2019-12-18] MEDS: Multivitamin w/ Minerals Tab PO SCH (08:39)
[2019-12-18] MEDS: Lactulose 10 Gm/15 mL 30mL UDC PO SCH ×2 (09:30→16:22)
--- NOTE | 2019-12-18 09:48 | Progress Notes ---
DATE: 12/18/2019 SUBJECTIVE: Chart reviewed and the patient interviewed. Also discussed the patient's condition with the staff and reviewed records and labs. The patient seems to be slightly less agitated and less irritable. The patient also is interacting slightly more with peers and with others. He still has episodes of agitation and wanted to be left alone. Otherwise, the patient is compliant with taking his medications with no side effects of medications. The patient's gait is more steady and he is getting out of his room more. Vital signs are stable and no new labs available for review MENTAL STATUS EXAM: Anxious. Cooperative. Thought processes are circumstantial, but no flight of ideas. ASSESSMENT: The patient seems to be slightly less agitated and also seems to be getting out of his room more. TREATMENT PLAN: We will continue to monitor his behavior and his condition closely. Also, continue to work on his discharge plans and placement issue. ESTIMATED LENGTH OF STAY: 1-3 days. REASON TO CONTINUE HOSPITAL STAY: The patient still needs adjustment on his medications and also monitoring his behavior. JOB# [id number]
--- NOTE | 2019-12-18 19:47 | Internal Medicine Prog Note ---
Internal Medicine Subjective - Subjective Service Date: 12/18/19 Patient seen and examined:: without staff (HE FEELS WELL) Patient is:: awake, verbal, ambulating, talking, confused Per staff patient has:: no adverse event, eating well, confused Internal Medicine Objective - Results Recent Labs: Laboratory Last Values POC Glucose 115 MG/DL (70 - 105) H 12/12/19 15:56 - Physical Exam Vitals and I&O: Vital Signs Temp 97.7 F 12/18/19 14:55 Pulse 78 12/18/19 16:18 Resp 20 12/18/19 14:55 BP 113/69 12/18/19 16:18 Pulse Ox 94 12/18/19 14:55 Intake & Output 12/18/19 12/18/19 12/19/19 06:59 18:59 06:59 Intake Total 240 1250 Balance 240 1250 Intake: Oral 240 1250 Other: # Voids 3 # Bowel Movements 0 1 Active Medications: Current Medications Acetaminophen (Tylenol) 650 mg PO Q4H PRN PRN Reason: Pain (Mild 1-3) Stop: 02/09/20 07:44 Last Admin: 12/12/19 23:41 Dose: 650 mg Al Hydrox/Mg Hydrox/Simethicone (Maalox) 30 ml PO Q4HR PRN PRN Reason: GI DISTRESS Stop: 02/09/20 07:44 Carvedilol (Coreg) 3.125 mg PO BID [facility] Stop: 02/10/20 08:59 Last Admin: 12/18/19 16:18 Dose: 3.125 mg Docusate Sodium (Colace) 250 mg PO BID [facility] Stop: 02/10/20 08:59 Last Admin: 12/18/19 16:18 Dose: 250 mg Lactulose (Cephulac) 30 gm PO BID [facility] Stop: 02/10/20 08:59 Last Admin: 12/18/19 16:22 Dose: Not Given Lorazepam (Ativan) 0.5 mg PO Q4HR PRN; Protocol PRN Reason: Anxiety Stop: 01/10/20 07:44 Losartan Potassium (Cozaar) 25 mg PO DAILY [facility] Stop: 02/10/20 08:59 Last Admin: 12/18/19 08:24 Dose: 25 mg Magnesium Hydroxide (Milk Of Magnesia) 30 ml PO HS PRN PRN Reason: Constipation Miscellaneous (Valbenazine Tosylate [Ingrezza]) 40 mg PO DAILY [facility] Stop: 02/10/20 08:59 Risperidone (Risperdal) 1 mg PO DAILY [facility] Stop: 02/15/20 08:59 Last Admin: 12/18/19 08:25 Dose: 1 mg Risperidone 1 mg/ Risperidone (0.5 mg) 1.5 mg PO HS [facility] Stop: 02/14/20 20:59 Last Admin: 12/17/19 20:30 Dose: 1.5 mg Trazodone HCl (Desyrel) 25 mg PO HS [facility]; Protocol Stop: 02/09/20 20:59 Last Admin: 12/17/19 20:29 Dose: 25 mg Zolpidem Tartrate (Ambien) 5 mg PO HS PRN PRN Reason: Insomnia Stop: 02/09/20 07:44 Last Admin: 12/13/19 21:26 Dose: 5 mg General: demented HEENT: NC/AT, PERRLA, EOMI, anicteric sclerae, throat clear Neck: Supple, No JVD, No thyromegaly, +2 carotid pulse wo bruit, No LAD Lungs: CTAB Cardiovascular: RRR, Normal S1, Normal S2, without murmur Abdomen: soft, non-tender, non-distended Extremities: clear Neurological: no change, gait stable Internal Medicine Assmt/Plan - Assessment Assessment: 1.HTN. 2.COPD. 3,DJD. 4.PSYCHOSIS - Plan Plan: CONTIINUE ON CURRENT MEDICATION AND DIET Nutritional Asmnt/Malnutr-PDOC - Dietary Evaluation Malnutrition Findings (Please click <Entered> for more info): Nutritional Asmnt/Malnutrition Start: 12/13/19 10: 32 Text: Status: Complete Freq: Protocol: Document 12/13/19 10:32 ZOE[facility] (Rec: 12/13/19 10:41 [facility]- F[facility]) Nutritional Asmnt/Malnutrition Patient General Information Nutritional Screening Moderate Risk Diagnosis Psychosis Pertinent Medical Hx/Surgical Hx Hypertension, degenerative joint disease, constipation, dementia Subjective Information Patient was admitted from [facility]. Per nursing notes, patient with poor dentition and no dentures brought in. He is tolerating current diet with adequate intake. Current Diet Order/ Nutrition Support Pureed, Cardiac, 60gm CCHO, NCS Patient / S.O Not Indicated Pertinent Medications maalox, colace, lactulose, cozaar, MOM Pertinent Labs Glucose 115 Nutritional Hx/Data Height 1.83 m Height (Calculated Centimeters) 182.9 Current Weight (lbs) 81.647 kg Weight (Calculated Kilograms) 81.6 Weight (Calculated Grams) 37977.6 [place] Body Weight 178 % [place] Body Weight 101 Body Mass Index (BMI) 24.4 Recent Weight Change No Weight Status Approriate GI Symptoms GI Symptoms None Last BM 12/11 x 1 Difficult in: None Food Allergies No Cultural/Ethnic/Mormonism Belief none indicated Usual diet at home unknown Skin Integrity/Comment: Matthew 18, Intact Current %PO Good (75-100%) Estimated Nutritional Goals BEE in Kcals: Using Current wt Calories/Kcals/Kg 81.8kg 25-30 kcal/kg Kcals Calculated ~3477-9379 kcal/day Protein: Using Current wt Protein g/k.8-1gm/kg Protein Calculated ~65-80 gm/day Fluid: ml ~0325-9789 ml/day (1 ml/kcal) Nutritional Problem No current Nutrition Prob Problem No nutrition diagnosis at this time Intervention/Recommendation Comments 1. Continue pureed, Cardiac, 60gm CCHO diet as tolerated by patient. Expected Outcomes/Goals Expected Outcomes/Goals Adequate nutrition to meet >75 % estimated needs, improved labs, improved GI function, TF tolerance, advancement to oral diet, skin remains intact , weight maintenance or trend toward ideal body weight. F/U LR 12/19-
[2019-12-19] MEDS: Multivitamin w/ Minerals Tab PO SCH (08:26)
[2019-12-19] MEDS: Lactulose 10 Gm/15 mL 30mL UDC PO SCH (08:27)
--- NOTE | 2019-12-19 09:51 | Discharge Summary ---
DATE OF DISCHARGE: 12/19/2019 PSYCHIATRIC DISCHARGE SUMMARY PATIENT'S AGE: 74. SEX: Male. PHYSICIAN: Dr. Cooper. FINAL DIAGNOSIS AND PRIMARY DIAGNOSIS: Schizophrenic disorder, unspecified. MEDICAL DIAGNOSES: 1. Kidney disease, unspecified. 2. Type 2 diabetes mellitus. 3. Umbilical hernia. 4. Anemia. REASON FOR HOSPITALIZATION: The patient was admitted to the hospital because of paranoia and also because of patient was responding to stimuli and talking to himself and had difficulty following any directions. HOSPITAL COURSE: The patient continued to be in an irritable and depressed mood. The patient also was at times easily agitated. The patient was given Risperdal and the dose adjusted to 1 mg in the morning and 1.5 mg at bedtime. Also, because of his difficulty sleeping at night, the patient was given trazodone 25 mg at bedtime. Gradually, the patient's affect was brighter. The patient was not agitated. The patient also was interacting more with peers and with others and the patient was discharged from the hospital. The patient went back to [place]. PHYSICAL EXAMINATION: Came as mentioned under AXIS III final diagnosis. The patient had no major medical problems while in the hospital. Blood workup was monitored closely and basically with no major abnormal labs. AFTER DISCHARGE PLANS: The patient discharged from the hospital and went back to [facility] for rehabilitation. Outpatient treatment and followup to continue there. EXPECTED OUTCOME AFTER DISCHARGE: Fair if the patient continued to take his psychotropic medications and follow up with discharge plans. JOB# [id number]
== END 2019-12-19 16:09 | DRG 885 ==
LOC: GERO 12-11 07:10
PROVIDERS: ADMIT Psychiatry & Neurology Psychiatry; ATTEND Psychiatry & Neurology Psychiatry
DX: F20.9 Schizophrenia, unspecified (principal); D64.9 Anemia, unspecified; E11.9 Type 2 diabetes mellitus without complications; N28.9 Disorder of kidney and ureter, unspecified; I10 Essential (primary) hypertension; J44.9 Chronic obstructive pulmonary disease, unspecified; M19.90 Unspecified osteoarthritis, unspecified site; F29 Unspecified psychosis not due to a substance or known physiological condition; K42.9 Umbilical hernia without obstruction or gangrene; G20 Parkinson's disease; F03.90 Unspecified dementia, unspecified severity, without behavioral disturbance, psychotic disturbance, mood disturbance, and anxiety; F17.200 Nicotine dependence, unspecified, uncomplicated
CPT/HCPCS: 82948-90; 83036-90; G0410; Z7610